=== PATIENT | male | born 1960 | race Caucasian/White ===

== ENCOUNTER 2016-09-02 06:09 | Emergency (ER) | payer OTHER ==
[~2016-09-02] VITALS: Ht 154.9 cm; Wt 63.6 kg
[2016-09-02] MEDS ORDERED: NITROGLYCERIN 2% 1 GM OINT PKT TD STA (06:14)
[2016-09-02] MEDS ORDERED: ASPIRIN 325 MG TAB PO STA (06:14)
[2016-09-02 06:16] VITALS: Ht 154.9 cm; Wt 63.6 kg
[2016-09-02 06:26] LABS: ADD SCAN DIFF NO
[2016-09-02] MEDS ORDERED: NITROGLYCERIN (SL) 0.4 MG TAB SL PRN (06:30)
[2016-09-02 06:38] LABS: CHLORIDE 104 mmol/L (97-110)
--- NOTE | 2016-09-02 06:38 | RADRPT ---
PROCEDURE: CHEST - 1 VIEW CLINICAL INDICATION: 56-year-old male with chest pain. TECHNIQUE: A single frontal AP semi-erect portable view of the chest was performed. The images we re reviewed on a PACS workstation. COMPARISON: None. FINDINGS: The cardiomediastinal silhouette has a normal appearance. There is no evidence for an infiltrate. There is no evidence for congestive heart failure. There is no evidence for pneumothorax. The osseou s structures are intact. IMPRESSION: No evidence for active cardiopulmonary disease. .Stanislaw Da Silva MD, MD Date Time Electronically viewed and signed by .Stanislaw Da Silva MD, on 09/02/2016 06:38 .M/
[2016-09-02 06:39] LABS: POTASSIUM 3.1 mmol/L (3.5-5.1); SODIUM 141 mmol/L (135-144)
[2016-09-02 06:40] LABS: BASOPHIL # 0.1 10^3/ul (0.0-0.1); BASOPHILS % 0.7 % (0.0-2.0); EOSINOPHILS # 0.5 10^3/ul (0.0-0.5); HEMATOCRIT 44.1 % (42.0-52.0); HEMOGLOBIN 15.4 g/dl (14.0-18.0); INR 1.12; LYMPHOCYTES # 3.8 10^3/ul (0.8-2.9); LYMPHOCYTES % 46.1 % (15.0-51.0); MEAN CORPUSCULAR HEMOGLOBIN 32.5 pg (29.0-33.0); MEAN CORPUSCULAR HGB CONC 34.9 g/dl (32.0-37.0); MEAN PLATELET VOLUME 9.9 fl (7.4-10.4); MONOCYTE # 0.7 10^3/ul (0.3-0.9); NEUTROPHIL # 3.1 10^3/ul (1.6-7.5); NEUTROPHILS % 38.5 % (39.0-77.0); PLATELET COUNT 206 10^3/UL (140-415); PROTIME 14.4 Sec (12.2-14.2); PT RATIO 1.1; RED BLOOD COUNT 4.74 10^6/ul (4.70-6.10); RED CELL DISTRIBUTION WIDTH 12.2 % (11.5-14.5); WHITE BLOOD COUNT 8.1 10^3/ul (4.8-10.8)
[2016-09-02 06:41] LABS: CREATININE 0.86 mg/dl (0.61-1.24); PARTIAL THROMBOPLASTIN TIME 22.9 Sec (25.0-35.0)
[2016-09-02 06:42] LABS: ANION GAP 13 (8-16); BLOOD UREA NITROGEN 29 mg/dl (7-20); CALCIUM 9.1 mg/dl (8.4-10.2); CARBON DIOXIDE 27 mmol/L (21-31); GLUCOSE 197 mg/dl (70-220)
[2016-09-02 06:57] LABS: TROPONIN-I < 0.012 ng/ml (0.00-0.12)
--- NOTE | 2016-09-02 07:16 | RADRPT ---
PROCEDURE: CT Brain without contrast. CLINICAL INDICATION: Syncope versus seizure. Symptoms began while on treadmill. TECHNIQUE: Axial images from the skull base through the vertex without IV contrast. Multiplanar r eformatted images were made. Images were reviewed on a PACS workstation. The CTDIvol is 44.77 mGy and the DLP is 630.2 mGycm. One or more of the following dose reduction techniques were used: autom ated exposure control, adjustment of the mA and/or kV according to patient size, or use of iterative reconstruction technique. COMPARISON: None. FINDINGS: There is extensive diffuse subarachnoid hemorrhage throughout both hemispheres, most extensive in th e suprasellar region. Diffuse subarachnoid hemorrhage is most suggestive of ruptured aneurysm. Mil d ventricular prominence is seen. Blood is seen extending into the subarachnoid space surrounding t he proximal cervical cord and brainstem. No definite intraparenchymal hemorrhage or subdural or epi dural hematoma. No calvarial fracture is seen. The visualized paranasal sinuses and mastoids are cl ear. IMPRESSION: Acute diffuse subarachnoid hemorrhage most likely due to ruptured aneurysm. Results were called to Vito Willett at 09/02/2016 7:12:00 AM Critical results: Intracranial hemorrhage. RPTAT: [facility]BE Physician Wilver Date Time Electronically viewed and signed by Physician Wilver on 09/02/2016 07:16 [email or web address]/
[2016-09-02] MEDS ORDERED: morphine 4 MG/ML VIAL IV STA (08:03)
[2016-09-02] MEDS ORDERED: ONDANSETRON 4 MG INJ IV STA (08:03)
--- NOTE | 2016-09-02 08:58 | ERA ---
ER Documentation Chief Complaint Date/Time DATE: 09/02/16 TIME: 08:55 Chief Complaint BIBA RA39, post-ictal sz HPI Patient is a 52-year-old male with no medical problems who presents after a seizure. The patient was brought in by ambulance. He had a seizure while working out on a treadmill. He had bradycardia per paramedics. An EKG done by paramedics showed possible STEMI. The patient has had no treatment as of yet. His blood sugar was 158. He denies chest pain. ROS All systems reviewed and are negative except as per history of present illness. Medications Home Meds No Active Prescriptions or Reported Meds Allergies Allergies: Coded Allergies: No Known Allergy (Unverified , 09/02/16) PMhx/Soc Medical and Surgical Hx: pt denies Medical Hx, pt denies Surgical Hx Hx Alcohol Use: No Hx Substance Use: No Hx Tobacco Use: No Smoking Status: Never smoker FmHx Family History: No coronary disease Physical Exam Vitals Vital Signs Date Time Temp Pulse Resp B/P Pulse Ox O2 Delivery O2 Flow Rate FiO2 09/02/16 08:16 59 18 131/90 98 Room Air 09/02/16 07:30 52 18 129/84 99 Room Air 09/02/16 06:44 62 18 134/90 100 Room Air 09/02/16 06:16 98.0 67 16 130/90 97 Physical Exam Const: No acute distress Head: Atraumatic Eyes: Normal Conjunctiva ENT: Normal External Ears, Nose and Mouth. Neck: Full range of motion..~ No meningismus. Resp: Clear to auscultation bilaterally Cardio: Regular rate and rhythm, no murmurs Abd: Soft, non tender, non distended. Normal bowel sounds Skin: No petechiae or rashes Back: No midline or flank tenderness Ext: No cyanosis, or edema Neur: Awake and alert, no slurred speech, cranial nerves II through XII are intact, strength is 5/5 in all 4 extremities Psych: Normal Mood and Affect Result Diagram: 09/02/16 0610 09/02/16 0610 Results 24 hrs Laboratory Tests Test 09/02/16 06:10 09/02/16 06:28 White Blood Count 8.110^3/ul Red Blood Count 4.7410^6/ul Hemoglobin 15.4g/dl Hematocrit 44.1% Mean Corpuscular Volume 93.0fl Mean Corpuscular Hemoglobin 32.5pg Mean Corpuscular Hemoglobin Concent 34.9g/dl Red Cell Distribution Width 12.2% Platelet Count 83185^3/UL Mean Platelet Volume 9.9fl Neutrophils % 38.5% Lymphocytes % 46.1% Monocytes % 8.0% Eosinophils % 6.0% Basophils % 0.7% Nucleated Red Blood Cells % 0.0/100WBC Neutrophils # 3.110^3/ul Lymphocytes # 3.810^3/ul Monocytes # 0.710^3/ul Eosinophils # 0.510^3/ul Basophils # 0.110^3/ul Nucleated Red Blood Cells # 0.010^3/ul Prothrombin Time 14.4Sec Prothrombin Time Ratio 1.1 INR International Normalized Ratio 1.12 Activated Partial Thromboplast Time 22.9Sec Sodium Level 141mmol/L Potassium Level 3.1mmol/L Chloride Level 104mmol/L Carbon Dioxide Level 27mmol/L Anion Gap 13 Blood Urea Nitrogen 29mg/dl Creatinine 0.86mg/dl Glucose Level 197mg/dl Calcium Level 9.1mg/dl Troponin I < 0.012ng/ml Bedside Glucose 169mg/dL Current Medications Medications (Trade) Dose Ordered Sig/Guy Route PRN Reason Start Time Stop Time Status Last Admin Dose Admin Aspirin (Aspirin) 325 mg ONCE STAT PO 09/02/16 06:14 09/02/16 06:16 DC 09/02/16 06:33 Nitroglycerin (Nitroglycerin 2% Oint) 1 inch ONCE STAT TD 09/02/16 06:14 09/02/16 07:51 DC 09/02/16 06:33 Nitroglycerin (Nitroglycerin (Sl Tab) 0.4 Mg) 1 tab Q5M UP TO 3 DOSES PRN SL CHEST PAIN 09/02/16 06:30 09/02/16 07:51 DC Morphine Sulfate (morphine) 4 mg ONCE STAT IV 09/02/16 08:03 09/02/16 08:04 DC 09/02/16 08:06 Ondansetron HCl (Zofran Inj) 4 mg ONCE STAT IV 09/02/16 08:03 09/02/16 08:04 DC 09/02/16 08:06 Procedures/MDM EKG #1 read by me: Rate/Rhythm: Regular rate and rhythm at a normal rate Intervals: Normal Impression: No evidence of ischemia or arrhythmia EKG #2 read by me: Rate/Rhythm: Regular rate and rhythm at a normal rate Intervals: Normal Impression: No evidence of ischemia or arrhythmia EKG #3 read by me: Rate/Rhythm: Regular rate and rhythm at a normal rate Intervals: Normal Impression: No evidence of ischemia or arrhythmia EKG #4 read by me: Rate/Rhythm: Regular rate and rhythm at a normal rate Intervals: Normal Impression: No evidence of ischemia or arrhythmia CT brain shows subarachnoid hemorrhage per radiology. Patient is a 52-year-old male who presents after having a seizure. CT scan of the brain shows a acute subarachnoid hemorrhage. The patient will need aneurysm clipping versus coiling as this is most likely from a ruptured aneurysm. 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 A code STEMI had been called at 6:10 AM and unfortunately there was a delay in speaking to a clinical engineer as it was unclear as to who is on-call. I finally spoke with Dr. Balderas at 6:25 AM and we decided that the patient was not a good Centrifugal Drier Operator candidate and most likely not a true STEMI. Once the diagnosis of subarachnoid hemorrhage was made I spoke with Dr. Peng who is the neurosurgeon on-call. He asked me to call Dr. Quarles who has accepted the patient in transfer to [facility]. The patient will need transfer for higher level of care as we do not have the ability to manage subarachnoid hemorrhage here at [facility]. I will keep blood pressure below 140 systolic. Critical Care: Time: 45 minutes excluding all billable procedures. Treatments/Evaluations: Close monitoring and treatment of unstable vital signs, cardiorespiratory, and neurologic status, while maintaining tight balance of fluid, respiratory, and cardiac interventions. Departure Diagnosis: Primary Impression: SAH (subarachnoid hemorrhage) Additional Impression: Seizure Condition: Critical DILIP ELLIS MD Sep 02, 2016 08:58
[2016-09-02] MEDS ORDERED: LABETALOL HCL 20MG INJ IV ONE (09:30)
[2016-09-02] MEDS ORDERED: hydrALAzine 20 MG INJ IV ONE ×2 (10:00→11:30)
[2016-09-02 11:22] VITALS: BP 127/85; PULSE 57; RESP 18; TEMP 97.6
== END 2016-09-02 12:02 | disposition short-term general hospital (02) ==
LOC: E/R 06:09
DX: I60.9 Nontraumatic subarachnoid hemorrhage, unspecified (principal); R00.1 Bradycardia, unspecified; R40.2362 Coma scale, best motor response, obeys commands, at arrival to emergency department; R40.2142 Coma scale, eyes open, spontaneous, at arrival to emergency department; R40.2252 Coma scale, best verbal response, oriented, at arrival to emergency department
CPT/HCPCS: 70450; 71010; 80048; 82962; 84484; 85025; 85610; 85730; 93005; J0360; J2270; J2405; 36415; 96374; 96375; 96376